=== PATIENT | female | born 1960 | race African-American/Black ===

== ENCOUNTER 2023-08-30 11:12 | Inpatient (IN) | payer MEDICAID, OTHER, SELFPAY ==
[~2023-08-30] VITALS: Ht 167.6 cm; Wt 65.4 kg
[2023-08-30] MEDS ORDERED: METF10004 (11:21)
[2023-08-30 12:44] LABS: BASO % 0.3 % (0.0-1.0); EOS % 0.3 % (0.0-3.0); HEMATOCRIT 40.8 % (36.0-47.0); LYMPH # 2.6 10^3/uL (1.5-5.0); LYMPH % 34.7 % (24.0-44.0); MEAN CORPUSCULAR HEMOGLOBIN 23.9 pg (27.0-33.0); MEAN CORPUSCULAR HGB CONC 31.9 g/dl (32.0-36.5); MEAN CORPUSCULAR VOLUME 75.1 fl (80.0-96.0); MONO # 0.3 10^3/uL (0.0-0.8); MONO % 3.5 % (2.0-8.0); NEUTROPHILS # 4.6 10^3/uL (1.5-8.5); NEUTROPHILS % 61.1 % (36.0-66.0); PLATELET COUNT, AUTOMATED 338 10^3/uL (150-450); RED BLOOD COUNT 5.43 10^6/uL (4.00-5.40); WHITE BLOOD COUNT 7.5 10^3/uL (4.0-10.0)
[2023-08-30 13:13] LABS: ALBUMIN 4.3 G/DL (3.2-5.2); ALKALINE PHOSPHATASE 103 U/L (46-116); ALT/SGPT 16 U/L (7.0-40); AST/SGOT 10 U/L (<34); BILIRUBIN,TOTAL 0.4 MG/DL (0.3-1.2); BLOOD UREA NITROGEN 50 MG/DL (9-23); CALCIUM LEVEL 10.4 MG/DL (8.3-10.6); CARBON DIOXIDE LEVEL 21 MMOL/L (20-31); CHLORIDE LEVEL 91 MMOL/L (98-107); CREATININE FOR GFR 1.86 MG/DL (0.55-1.30); GLOMERULAR FILTRATION RATE 29.2 (>45); GLUCOSE, FASTING 635 MG/DL (74-106); POTASSIUM SERUM 4.8 MMOL/L (3.5-5.1); SODIUM LEVEL 125 MMOL/L (136-145); TOTAL PROTEIN 8.5 G/DL (5.7-8.2)
[2023-08-30] MEDS ORDERED: NS 500 ML IV ONE ×2 (14:15→15:05)
[2023-08-30 14:18] LABS: VENOUS BASE EXCESS -7.4 (-2.0-2.0); VENOUS HCO3 19.3 MMOL/L (23.0-27.0); VENOUS O2 SATURATION 73.2 % (60.0-80.0); VENOUS PARTIAL PRESSURE CO2 43.8 mmHg (38.0-50.0); VENOUS PARTIAL PRESSURE O2 41.3 mmHg (30.0-50.0); VENOUS PH 7.263 UNITS (7.330-7.430); VENOUS TOTAL CO2 20.7 MMOL/L (24.0-28.0)
[2023-08-30] MEDS ORDERED: HumuLIN R (REGULAR) INSULIN (NovoLIN R) **100U/ML** PER UNIT IV ONE ×2 (14:20→16:10)
[2023-08-30 14:33] LABS: CK-MB VALUE MASS < 1.0 NG/ML (<3.6)
[2023-08-30 14:35] LABS: CPK CREATINE PHOSPHOKINASE 100 U/L (34-145)
[2023-08-30 14:42] LABS: ACETONE/KETONE 2.93 MMOL/L (0.02-0.27)
[2023-08-30 15:42] LABS: HEMOGLOBIN A1c > 14.0 % (4.0-6.0)
[2023-08-30] MEDS ORDERED: LR 1,000 ML IV ONE (16:10)
[2023-08-30] MEDS ORDERED: MED REC IN PROGRESS XX SCH (17:25)
[2023-08-30] MEDS ORDERED: MOM 30ML SUSPENSION UDC PO PRN (17:35)
[2023-08-30] MEDS ORDERED: DEXTROSE 50% 50ML SYRINGE IV PRN (17:35)
[2023-08-30] MEDS ORDERED: GLUCAGON INJ 1MG VIAL SC PRN (17:35)
[2023-08-30] MEDS ORDERED: GLUCOSE 4GM CHEW TABLET PO PRN (17:35)
[2023-08-30 18:28] LABS: IRON (FE) 46 UG/DL (50-170); MAGNESIUM LEVEL 2.6 MG/DL (1.8-2.4); PHOSPHORUS LEVEL 4.9 MG/DL (2.4-5.1)
[2023-08-30 18:29] LABS: PERCENT SATURATION 17.2 % (13.2-45.0); TOTAL IRON BINDING CAPACITY 267 UG/DL (250-425)
[2023-08-30 18:31] LABS: FOLATE 16.78 NG/ML (>5.4); VITAMIN B12 LEVEL 708 PG/ML (211-911)
[2023-08-30] MEDS: INSULIN LISPRO (NovoLOG) PER UNIT SC SCH ×2 (18:39→21:09)
[2023-08-30] MEDS ORDERED: HIV MEDICATION (18:48)
[2023-08-30 18:55] LABS: INR 1.24; PROTHROMBIN TIME 15.2 SECONDS (12.5-14.5)
[2023-08-30 18:56] LABS: FERRITIN 1447.7 NG/ML (7.3-270.7)
[2023-08-30] MEDS ORDERED: MED REC CURRENTLY UNOBTAINABLE XX SCH (20:30)
[2023-08-30] MEDS: DOCUSATE SODIUM 100MG CAPSULE PO SCH (21:00)
[2023-08-30] MEDS: HEPARIN SOD (PORCINE) 5000UNITS/ML 1ML VIAL/SYRINGE SC SCH (23:42)
[2023-08-31 00:46] LABS: ALBUMIN 3.6 G/DL (3.2-5.2); BLOOD UREA NITROGEN 32 MG/DL (9-23); CALCIUM LEVEL 9.5 MG/DL (8.3-10.6); CARBON DIOXIDE LEVEL 23 MMOL/L (20-31); CHLORIDE LEVEL 106 MMOL/L (98-107); CREATININE FOR GFR 1.48 MG/DL (0.55-1.30); GLOMERULAR FILTRATION RATE 46.1 (>45); GLUCOSE, FASTING 62 MG/DL (74-106); PHOSPHORUS LEVEL 3.3 MG/DL (2.4-5.1); POTASSIUM SERUM 3.6 MMOL/L (3.5-5.1); SODIUM LEVEL 139 MMOL/L (136-145)
[2023-08-31] MEDS: INSULIN LISPRO (NovoLOG) PER UNIT SC SCH ×5 (02:11→18:59)
[2023-08-31 05:56] LABS: VENOUS BASE EXCESS -4.8 (-2.0-2.0); VENOUS HCO3 21.6 MMOL/L (23.0-27.0); VENOUS O2 SATURATION 87.7 % (60.0-80.0); VENOUS PARTIAL PRESSURE CO2 45.5 mmHg (38.0-50.0); VENOUS PARTIAL PRESSURE O2 56.2 mmHg (30.0-50.0); VENOUS PH 7.295 UNITS (7.330-7.430); VENOUS STANDARD HCO3 20.3 MMOL/L
[2023-08-31 06:02] LABS: HEMATOCRIT 35.5 % (36.0-47.0); HEMOGLOBIN 11.2 g/dl (12.0-15.5); MEAN CORPUSCULAR HEMOGLOBIN 23.9 pg (27.0-33.0); MEAN CORPUSCULAR HGB CONC 31.5 g/dl (32.0-36.5); MEAN CORPUSCULAR VOLUME 75.7 fl (80.0-96.0); PLATELET COUNT, AUTOMATED 302 10^3/uL (150-450); RED BLOOD COUNT 4.69 10^6/uL (4.00-5.40); WHITE BLOOD COUNT 6.9 10^3/uL (4.0-10.0)
[2023-08-31 06:31] LABS: ALBUMIN 3.3 G/DL (3.2-5.2); CALCIUM LEVEL 9.5 MG/DL (8.3-10.6); CREATININE FOR GFR 1.5 MG/DL (0.55-1.30); GLOMERULAR FILTRATION RATE 45.4 (>45); MAGNESIUM LEVEL 2.1 MG/DL (1.8-2.4); PHOSPHORUS LEVEL 4.3 MG/DL (2.4-5.1); POTASSIUM SERUM 4.3 MMOL/L (3.5-5.1)
[2023-08-31] MEDS: DOCUSATE SODIUM 100MG CAPSULE PO SCH ×2 (08:15→21:03)
[2023-08-31] MEDS: HEPARIN SOD (PORCINE) 5000UNITS/ML 1ML VIAL/SYRINGE SC SCH ×3 (08:17→21:02)
[2023-08-31] MEDS: LR 1,000 ML IV SCH ×3 (08:30→21:04)
[2023-08-31] MEDS ORDERED: LEVEMIR (INSULIN DETEMIR) 1 UNITS/0.01ML SC SCH (09:00)
[2023-08-31] MEDS: ACETAMINOPHEN TAB 650MG DOSE (2X325MG) PO PRN ×2 (10:32→18:59)
[2023-08-31] MEDS ORDERED: LANC30MI XX (10:56)
[2023-08-31] MEDS ORDERED: METF-877 PO (10:56)
[2023-08-31] MEDS ORDERED: LANTINJ4 SC (10:56)
[2023-08-31] MEDS ORDERED: PEN-308 SC (10:56)
[2023-08-31] MEDS ORDERED: ALCOPAD25 TOP (10:56)
[2023-08-31] MEDS ORDERED: GLUC1TES2 XX (10:56)
[2023-08-31] MEDS ORDERED: BLOOKIT21 XX (10:56)
[2023-08-31 15:15] VITALS: BP 134/83; TEMP 97.5; O2SAT 100
[2023-08-31 19:01] LABS: CALCIUM LEVEL 8.7 MG/DL (8.3-10.6); CREATININE FOR GFR 1.35 MG/DL (0.55-1.30); GLOMERULAR FILTRATION RATE 51.3 (>45); PHOSPHORUS LEVEL 2.9 MG/DL (2.4-5.1); POTASSIUM SERUM 4.6 MMOL/L (3.5-5.1)
[2023-08-31] MEDS ORDERED: INSULIN LISPRO (NovoLOG) PER UNIT SC SCH (21:00)
[2023-08-31 21:56] VITALS: BP 136/78; TEMP 97.6; O2SAT 100
[2023-09-01] MEDS: HEPARIN SOD (PORCINE) 5000UNITS/ML 1ML VIAL/SYRINGE SC SCH ×2 (06:00→14:00)
[2023-09-01 06:10] LABS: HEMATOCRIT 32.5 % (36.0-47.0); HEMOGLOBIN 10.5 g/dl (12.0-15.5); MEAN CORPUSCULAR HEMOGLOBIN 24.3 pg (27.0-33.0); MEAN CORPUSCULAR HGB CONC 32.3 g/dl (32.0-36.5); MEAN CORPUSCULAR VOLUME 75.2 fl (80.0-96.0); PLATELET COUNT, AUTOMATED 276 10^3/uL (150-450); RED BLOOD COUNT 4.32 10^6/uL (4.00-5.40)
[2023-09-01 06:27] VITALS: BP 127/80; TEMP 97.5; O2SAT 96
[2023-09-01 06:40] LABS: ALBUMIN 2.9 G/DL (3.2-5.2); CALCIUM LEVEL 8.5 MG/DL (8.3-10.6); CREATININE FOR GFR 1.32 MG/DL (0.55-1.30); GLOMERULAR FILTRATION RATE 52.6 (>45); MAGNESIUM LEVEL 1.8 MG/DL (1.8-2.4); PHOSPHORUS LEVEL 3.8 MG/DL (2.4-5.1); POTASSIUM SERUM 4.3 MMOL/L (3.5-5.1)
[2023-09-01] MEDS: INSULIN LISPRO (NovoLOG) PER UNIT SC SCH ×2 (08:27→12:42)
[2023-09-01] MEDS: DOCUSATE SODIUM 100MG CAPSULE PO SCH (08:28)
[2023-09-01] MEDS ORDERED: LEVEMIR (INSULIN DETEMIR) 1 UNITS/0.01ML SC SCH (09:00)
[2023-09-01] MEDS ORDERED: [UNRECOGNIZED DRUG - CODE] PO (09:20)
[2023-09-01] MEDS ORDERED: TIVI1TAB PO (09:20)
[2023-09-01] MEDS ORDERED: LANTINJ4 SC ×3 (09:22→14:10)
[2023-09-01] MEDS ORDERED: DEXT4TAB83 PO ×2 (09:22→14:10)
[2023-09-01] MEDS ORDERED: FERR325T3 PO ×3 (11:30→14:10)
[2023-09-01 14:00] VITALS: BP 121/67; TEMP 98.1; O2SAT 99
[2023-09-01] MEDS ORDERED: GLUC1TES2 XX (14:10)
[2023-09-01] MEDS ORDERED: LANC30MI XX (14:10)
[2023-09-01] MEDS ORDERED: METF-877 PO (14:10)
[2023-09-01] MEDS ORDERED: ALCOPAD25 TOP (14:10)
[2023-09-01] MEDS ORDERED: BLOOKIT21 XX (14:10)
[2023-09-01] MEDS ORDERED: PEN-308 SC (14:10)
[2023-09-01 14:11] LABS: % CD8 Pos Lymph 40.2 % (12.0-35.5); %CD4 Pos Lymphs 40.3 % (30.8-58.5); ABS Lymphs 2.7 x10E3/uL (0.7-3.1); ABS Monocytes 0.3 x10E3/uL (0.1-0.9); ABS Neutophils 4.3 x10E3/uL (1.4-7.0); Abs CD4 Helper 1088 /uL (359-1519); Abs CD8 Suppres 1085 /uL (109-897); Eosinophils 0 % (Not Estab.); HCT 36.2 % (34.0-46.6); HGB 11.4 g/dL (11.1-15.9); Immature Grans 0 % (Not Estab.); Lymphocytes 37 % (Not Estab.); MCH 23.7 pg (26.6-33.0); MCHC 31.5 g/dL (31.5-35.7); MCV 75 fL (79-97); Monocytes 3 % (Not Estab.); Neutrophils 60 % (Not Estab.); Platelets 323 x10E3/uL (150-450); RBC 4.81 x10E6/uL (3.77-5.28); RDW 17.7 % (11.7-15.4); WBC 7.3 x10E3/uL (3.4-10.8)
[2023-09-02 12:15] LABS: HIV 1&2 SCREEN REACTIVE (NEGATIVE)
== END 2023-09-01 16:40 | disposition home or self-care (01) | DRG 420 ==
LOC: M ED 11:12 → M ED INP 17:35 → ENRESERV 08-31 13:32 → M MS5PR 08-31 15:15
PROVIDERS: ADMIT Student in an Organized Health Care Education/Training Program; ATTEND Student in an Organized Health Care Education/Training Program
DX: E11.00 Type 2 diabetes mellitus with hyperosmolarity without nonketotic hyperglycemic-hyperosmolar coma (NKHHC) (principal); N17.9 Acute kidney failure, unspecified; B20 Human immunodeficiency virus [HIV] disease; E87.20 Acidosis, unspecified; E11.649 Type 2 diabetes mellitus with hypoglycemia without coma; Z79.4 Long term (current) use of insulin; Z87.891 Personal history of nicotine dependence; E11.65 Type 2 diabetes mellitus with hyperglycemia; E87.1 Hypo-osmolality and hyponatremia; Z79.899 Other long term (current) drug therapy

== ENCOUNTER → 2023-10-19 | Outpatient (CLI) | payer OTHER ==
[~2023-10-19] MED LIST: ALCOPAD25 TOP; BLOOKIT21 XX; DEXT4TAB83 PO; FERR325T3 PO; GLUC1TES2 XX; HIV MEDICATION; LANC30MI XX; LANTINJ4 SC; METF-877 PO; METF10004; PEN-308 SC; TIVI1TAB PO; [UNRECOGNIZED DRUG - CODE] PO
[2023-10-19 16:06] LABS: HEPATITIS B SURFACE ANTIBODY NEGATIVE (POSITIVE)
[2023-10-19 16:40] LABS: HEPATITIS C VIRUS ABY INDEX 0.07 INDEX (<0.8)
[2023-10-19 17:39] LABS: CHLAMYDIA DNA AMPLIFICATION NEGATIVE (NEGATIVE); GC DNA AMPLIFICATION NEGATIVE (NEGATIVE)
[2023-10-21 05:15] LABS: HEPATITIS A IgG TOTAL Positive (Negative); HEPATITIS B CORE ANTIBODY IGG Negative (Negative)
== END ==
LOC: M PLALAB 12:31
PROVIDERS: ATTEND Internal Medicine Infectious Disease
DX: B20 Human immunodeficiency virus [HIV] disease (principal); Z11.3 Encounter for screening for infections with a predominantly sexual mode of transmission

== ENCOUNTER → 2023-12-26 | Outpatient (REF) | payer MEDICAID, OTHER, SELFPAY ==
[~2023-12-26] MED LIST changes: +ABAC1TAB9 PO
== END ==
LOC: M SFHCWAGY 07:52
PROVIDERS: ATTEND Nurse Practitioner Family
DX: Z12.4 Encounter for screening for malignant neoplasm of cervix (principal)
CPT/HCPCS: 87624; G0123

== ENCOUNTER → 2023-12-26 | Outpatient (CLI) | payer MEDICAID, OTHER, SELFPAY ==
[~2023-12-26] MED LIST changes: -ABAC1TAB9 PO
== END ==
LOC: M WHC 09:07 → MERGE 09:11 → EDUNIT# 10:00
PROVIDERS: ATTEND Nurse Practitioner Family
DX: Z12.31 Encounter for screening mammogram for malignant neoplasm of breast (principal); Z13.820 Encounter for screening for osteoporosis

== ENCOUNTER → 2024-01-10 | Outpatient (CLI) | payer MEDICAID, OTHER | LOC: MERGE 10:30 → M WHC 10:41 | PROVIDERS: ATTEND Nurse Practitioner Family | DX: Z12.31 Encounter for screening mammogram for malignant neoplasm of breast (principal) ==

== ENCOUNTER → 2024-02-03 | Day surgery (SDC) | payer MEDICAID, SELFPAY ==
[~2024-02-03] VITALS: Ht 167.6 cm; Wt 68.0 kg
[~2024-02-03] MED LIST changes: +ABAC1TAB9 PO; +LIDOCAINE 2% 100MG/5ML SDV (FOR ANES.) As Ordered ONE; +PHENYLephrine 500MCG 5ML (100MCG/ML) SYRINGE As Ordered ONE; +fentaNYL 100 MCG/2 ML INJECTION As Ordered ONE; +propofoL 200 MG/20 ML VIAL As Ordered ONE
[2024-02-03] MEDS: NS 1,000 ML IV ONE (14:20)
[2024-02-03 15:20] VITALS: TEMP 97.3
[2024-02-03 15:42] VITALS: BP 115/71; O2SAT 97
== END | disposition home or self-care (01) ==
LOC: M OPP 13:14
PROVIDERS: ATTEND Internal Medicine Gastroenterology
DX: D50.9 Iron deficiency anemia, unspecified (principal); K64.8 Other hemorrhoids; K64.4 Residual hemorrhoidal skin tags; K29.70 Gastritis, unspecified, without bleeding; K31.7 Polyp of stomach and duodenum; K31.89 Other diseases of stomach and duodenum; E11.9 Type 2 diabetes mellitus without complications; B20 Human immunodeficiency virus [HIV] disease; Z79.4 Long term (current) use of insulin; Z79.624 Long term (current) use of inhibitors of nucleotide synthesis
CPT/HCPCS: 43239; 45378; 88305; J2371; J3010

== ENCOUNTER → 2024-04-03 | Outpatient (CLI) | payer MEDICAID ==
[~2024-04-03] MED LIST changes: -LIDOCAINE 2% 100MG/5ML SDV (FOR ANES.) As Ordered ONE; -PHENYLephrine 500MCG 5ML (100MCG/ML) SYRINGE As Ordered ONE; -fentaNYL 100 MCG/2 ML INJECTION As Ordered ONE; -propofoL 200 MG/20 ML VIAL As Ordered ONE
[2024-04-03 14:37] LABS: ALBUMIN 3.9 G/DL (3.2-5.2); BILIRUBIN,TOTAL 0.5 MG/DL (0.3-1.2); CALCIUM LEVEL 9.3 MG/DL (8.3-10.6); CREATININE FOR GFR 1.87 MG/DL (0.55-1.30); GLOMERULAR FILTRATION RATE 28.9 (>45); PERCENT SATURATION 15.5 % (13.2-45.0); POTASSIUM SERUM 4.2 MMOL/L (3.5-5.1); TOTAL PROTEIN 7.3 G/DL (5.7-8.2)
[2024-04-04 13:08] LABS: % CD4+ LYMPHS 43.3 % (30.8-58.5); ABSOLUTE CD4 HELPER 1429 /uL (359-1519); BASOPHILS 0 % (Not Estab.); EOSINOPHILS 1 % (Not Estab.); EOSINOPHILS ABSOLUTE 0.1 x10E3/uL (0.0-0.4); HCT 34.8 % (34.0-46.6); HGB 10.7 g/dL (11.1-15.9); LYMPHOCYTES 43 % (Not Estab.); LYMPHOCYTES ABSOLUTE 3.3 x10E3/uL (0.7-3.1); MCH 23.8 pg (26.6-33.0); MCHC 30.7 g/dL (31.5-35.7); MCV 78 fL (79-97); MONOCYTES 7 % (Not Estab.); MONOCYTES ABSOLUTE 0.5 x10E3/uL (0.1-0.9); NEUTROPHILS 49 % (Not Estab.); NEUTROPHILS ABSOLUTE 3.7 x10E3/uL (1.4-7.0); PLT 314 x10E3/uL (150-450); RBC 4.49 x10E6/uL (3.77-5.28); RDW 17.9 % (11.7-15.4); WBC 7.6 x10E3/uL (3.4-10.8)
== END ==
LOC: M PLALAB 04-02 14:20
PROVIDERS: ATTEND Internal Medicine Infectious Disease
DX: B20 Human immunodeficiency virus [HIV] disease (principal)

== ENCOUNTER → 2024-08-06 | Outpatient (CLI) | payer MEDICAID, OTHER, SELFPAY ==
[~2024-08-06] MED LIST changes: +ABAC1TAB14 PO; -ABAC1TAB9 PO
[2024-08-06 18:58] LABS: HEMATOCRIT 36.6 % (36.0-47.0); HEMOGLOBIN 11.1 g/dl (12.0-15.5); MEAN CORPUSCULAR HEMOGLOBIN 24.1 pg (27.0-33.0); MEAN CORPUSCULAR HGB CONC 30.3 g/dl (32.0-36.5); MEAN CORPUSCULAR VOLUME 79.4 fl (80.0-96.0); PLATELET COUNT, AUTOMATED 359 10^3/uL (150-450); RED BLOOD COUNT 4.61 10^6/uL (4.00-5.40)
== END ==
LOC: M LRY 09:11
PROVIDERS: ATTEND Nurse Practitioner Family
DX: D50.9 Iron deficiency anemia, unspecified (principal)

== ENCOUNTER → 2024-10-15 | Outpatient (CLI) | payer OTHER ==
[~2024-10-15] MED LIST changes: +FAMO-142 PO; +IRON65TA2 PO; +incomplete list
[2024-10-15 13:39] LABS: HEMOGLOBIN A1c 6.8 % (4.0-6.0)
[2024-10-15 13:44] LABS: ALBUMIN 3.7 G/DL (3.2-5.2); BILIRUBIN,TOTAL 0.4 MG/DL (0.3-1.2); CALCIUM LEVEL 9.4 MG/DL (8.3-10.6); CHOLESTEROL RISK RATIO 5.73 (<5); CREATININE FOR GFR 1.65 MG/DL (0.55-1.30); GLOMERULAR FILTRATION RATE 33.3 (>45); HDL CHOLESTEROL 38.9 MG/DL (>40); LDL CHOLESTEROL 139.3 MG/DL (<100); NON-HDL-C 184.1 MG/DL; POTASSIUM SERUM 4.7 MMOL/L (3.5-5.1); TOTAL PROTEIN 7.8 G/DL (5.7-8.2)
[2024-10-16 15:08] LABS: % CD4+ LYMPHS 34.9 % (30.8-58.5); ABSOLUTE CD4 HELPER 907 /uL (359-1519); BASOPHILS 0 % (Not Estab.); EOSINOPHILS 1 % (Not Estab.); EOSINOPHILS ABSOLUTE 0.1 x10E3/uL (0.0-0.4); HCT 33.6 % (34.0-46.6); HGB 10.9 g/dL (11.1-15.9); LYMPHOCYTES 46 % (Not Estab.); LYMPHOCYTES ABSOLUTE 2.6 x10E3/uL (0.7-3.1); MCH 24.8 pg (26.6-33.0); MCHC 32.4 g/dL (31.5-35.7); MCV 77 fL (79-97); MONOCYTES 6 % (Not Estab.); MONOCYTES ABSOLUTE 0.4 x10E3/uL (0.1-0.9); NEUTROPHILS 47 % (Not Estab.); NEUTROPHILS ABSOLUTE 2.6 x10E3/uL (1.4-7.0); PLT 334 x10E3/uL (150-450); RBC 4.39 x10E6/uL (3.77-5.28); RDW 17.1 % (11.7-15.4); WBC 5.6 x10E3/uL (3.4-10.8)
[2024-10-19 18:23] LABS: HIV-1 RNA PCR QUANT 3 2.49 (NOT DETECTED)
== END ==
LOC: M PLALAB 11:20
PROVIDERS: ATTEND Internal Medicine Infectious Disease
DX: B20 Human immunodeficiency virus [HIV] disease (principal)

== ENCOUNTER 2024-11-08 08:50 | Day surgery (SDC) | payer OTHER ==
[~2024-11-08] VITALS: Ht 167.6 cm; Wt 69.2 kg
[~2024-11-08 08:50] MED LIST changes: +MIDAZOLAM INJ 2MG/2ML VIAL As Ordered ONE; +PHENYLEPHRINE 10% OPHTH SOL 5ML OD PRN; +fentaNYL 100 MCG/2 ML INJECTION As Ordered ONE
[2024-11-08] MEDS: OFLOXACIN 0.3 % (OCUFLOX) OPTH SOL 5ML OD ONE (10:05)
[2024-11-08] MEDS: LIDOCAINE 3.5 % 1ML OPHTH TOPICAL GEL OU ONE (10:05)
[2024-11-08] MEDS: PHENYLEPHRINE 2.5% OPHTH SOL 2ML OD SCH (11:28)
[2024-11-08] MEDS: TROPICAMIDE 1% OPHTH SOLN 15ML OD SCH (11:28)
[2024-11-08] MEDS: CYCLOPENTOLATE 1% OPHTH SOLN 2ML BTL OD SCH (11:28)
[2024-11-08] MEDS: LIDOCAINE 1% SDV 5ML VIAL As Ordered ONE (12:15)
[2024-11-08] MEDS: CEFUROXIME 1MG/0.1ML INTRACAMERAL INJ As Ordered ONE (12:20)
[2024-11-08] MEDS: BSS IRRIG/VANCO(10MG)/TOBRA(5MG)/EPINEPH(1:1000-0.5CC)500ML BAG-ORONLY As Ordered ONE (12:20)
[2024-11-08 12:32] VITALS: BP 125/76; TEMP 96.8; O2SAT 98
== END 2024-11-08 13:39 | disposition home or self-care (01) ==
LOC: M SDC 08:50
PROVIDERS: ATTEND Ophthalmology
DX: E11.36 Type 2 diabetes mellitus with diabetic cataract (principal); H25.11 Age-related nuclear cataract, right eye; D50.9 Iron deficiency anemia, unspecified; Z21 Asymptomatic human immunodeficiency virus [HIV] infection status; Z79.899 Other long term (current) drug therapy; Z79.84 Long term (current) use of oral hypoglycemic drugs; K21.9 Gastro-esophageal reflux disease without esophagitis
CPT/HCPCS: 66984; J0697; J2250; J3010; V2632

== ENCOUNTER → 2025-04-30 | Outpatient (CLI) | payer OTHER ==
[~2025-04-30] MED LIST changes: -MIDAZOLAM INJ 2MG/2ML VIAL As Ordered ONE; -PHENYLEPHRINE 10% OPHTH SOL 5ML OD PRN; -fentaNYL 100 MCG/2 ML INJECTION As Ordered ONE
== END ==
LOC: M WHC 09:58
PROVIDERS: ATTEND Family Medicine
DX: Z12.31 Encounter for screening mammogram for malignant neoplasm of breast (principal); R92.8 Other abnormal and inconclusive findings on diagnostic imaging of breast

== ENCOUNTER → 2025-05-06 | Outpatient (CLI) | payer OTHER | LOC: M CARPUL 11:39 | PROVIDERS: ATTEND Internal Medicine Cardiovascular Disease | DX: R00.1 Bradycardia, unspecified (principal); R94.31 Abnormal electrocardiogram [ECG] [EKG]; I49.40 Unspecified premature depolarization ==

== ENCOUNTER 2025-07-13 13:19 | Observation (INO) | payer OTHER ==
[~2025-07-13] VITALS: Ht 165.1 cm; Wt 66.9 kg
[2025-07-13] MEDS ORDERED: JARD1TAB3 PO (13:37)
[2025-07-13 14:19] LABS: VENOUS BASE EXCESS -3.6 (-2.0-2.0); VENOUS HCO3 23.0 MMOL/L (23.0-27.0); VENOUS O2 SATURATION 50.9 % (60.0-80.0); VENOUS PARTIAL PRESSURE CO2 47.8 mmHg (38.0-50.0); VENOUS PARTIAL PRESSURE O2 28.9 mmHg (30.0-50.0); VENOUS PH 7.301 UNITS (7.330-7.430); VENOUS STANDARD HCO3 20.5 MMOL/L; VENOUS TOTAL CO2 24.5 MMOL/L (24.0-28.0)
[2025-07-13 14:23] LABS: BASO # 0.0 10^3/uL (0.0-0.2); BASO % 0.2 % (0.0-1.0); EOS # 0.0 10^3/uL (0.0-0.5); EOS % 0.6 % (0.0-3.0); LYMPH # 2.5 10^3/uL (1.5-5.0); LYMPH % 37.1 % (24.0-44.0); MONO # 0.3 10^3/uL (0.0-0.8); MONO % 4.4 % (2.0-8.0); NEUTROPHILS # 3.8 10^3/uL (1.5-8.5); NEUTROPHILS % 57.5 % (36.0-66.0); PLATELET COUNT, AUTOMATED 295 10^3/uL (150-450)
[2025-07-13 14:37] LABS: ESTIMATED AVERAGE GLUCOSE 341.0 MG/DL (60-110)
[2025-07-13 14:49] LABS: ACETONE/KETONE 0.41 MMOL/L (0.02-0.27)
[2025-07-13 14:51] LABS: OSMOLALITY SERUM 324.0 MOSM/KG (280-301)
[2025-07-13 14:52] LABS: ALT/SGPT 18.0 U/L (7.0-40); AST/SGOT 14.0 U/L (<34); CALCIUM LEVEL 10.0 MG/DL (8.3-10.6); CARBON DIOXIDE LEVEL 22.0 MMOL/L (20-31); CHLORIDE LEVEL 98.0 MMOL/L (98-107); CREATININE FOR GFR 2.09 MG/DL (0.55-1.30); GLOMERULAR FILTRATION RATE 26.0 (>45); MAGNESIUM LEVEL 2.2 MG/DL (1.8-2.4); POTASSIUM SERUM 5.1 MMOL/L (3.5-5.1); SODIUM LEVEL 133.0 MMOL/L (136-145)
[2025-07-13] MEDS: NS (Normal Saline) 0.9% 1,000 ML IV ONE (15:18)
[2025-07-13 17:03] LABS: VENOUS BASE EXCESS -4.2 (-2.0-2.0); VENOUS HCO3 22.5 MMOL/L (23.0-27.0); VENOUS O2 SATURATION 65.2 % (60.0-80.0); VENOUS PARTIAL PRESSURE CO2 47.4 mmHg (38.0-50.0); VENOUS PARTIAL PRESSURE O2 36.2 mmHg (30.0-50.0); VENOUS PH 7.294 UNITS (7.330-7.430); VENOUS STANDARD HCO3 20.4 MMOL/L; VENOUS TOTAL CO2 23.9 MMOL/L (24.0-28.0)
[2025-07-13 17:15] LABS: APPEARANCE, URINE CLEAR (CLEAR); BACTERIA, URINE AUTO NEGATIVE (NEGATIVE); BILIRUBIN, URINE AUTO NEGATIVE (NEGATIVE); BLOOD, URINE BLOOD 2+ (NEGATIVE); GLUCOSE, URINE (UA) AUTO 3+ mg/dL (NEGATIVE); KETONE, URINE AUTO NEGATIVE (NEGATIVE); LEUKOCYTE ESTERASE, URINE AUTO NEGATIVE (NEGATIVE); MUCUS, URINE SMALL (NEGATIVE); NITRITE, URINE AUTO NEGATIVE (NEGATIVE); PROTEIN, URINE AUTO NEGATIVE (NEGATIVE); RBC, URINE AUTO 2 /HPF (0-3); SPECIFIC GRAVITY URINE AUTO 1.014 (1.002-1.035); SQUAMOUS EPITHELIAL CELL UR AU 0 /HPF (0-6); UROBILINOGEN, URINE AUTO 0.2 mg/dL (0.0-2.0); WBC, URINE AUTO 0 /HPF (0-3)
[2025-07-13 17:44] LABS: OSMOLALITY SERUM 325.0 MOSM/KG (280-301)
[2025-07-13 17:45] LABS: CALCIUM LEVEL 9.3 MG/DL (8.3-10.6); CARBON DIOXIDE LEVEL 24.0 MMOL/L (20-31); CHLORIDE LEVEL 104.0 MMOL/L (98-107); CREATININE FOR GFR 1.98 MG/DL (0.55-1.30); GLOMERULAR FILTRATION RATE 27.7 (>45); POTASSIUM SERUM 4.8 MMOL/L (3.5-5.1); SODIUM LEVEL 139.0 MMOL/L (136-145)
[2025-07-13 17:46] LABS: ACETONE/KETONE 0.39 MMOL/L (0.02-0.27)
[2025-07-13] MEDS: NS 500 ML IV ONE (18:51)
[2025-07-13] MEDS: NS (Normal Saline) 0.9% 1,000 ML IV SCH (18:51)
[2025-07-13] MEDS: INSULIN LISPRO (NovoLOG) PER UNIT SC SCH (21:00)
[2025-07-13] MEDS ORDERED: ACETAMINOPHEN 325 MG TAB PO PRN (21:40)
[2025-07-13] MEDS ORDERED: GLUCAGON INJ 1 MG VIAL SC PRN (21:40)
[2025-07-13] MEDS ORDERED: GLUCOSE 4 GM CHEW PO PRN (21:40)
[2025-07-13] MEDS ORDERED: DEXTROSE 50% 50 ML SYRINGE IV PRN (21:40)
[2025-07-13] MEDS ORDERED: OMEP-173 PO (22:15)
[2025-07-13] MEDS ORDERED: METF500T13 PO (22:15)
[2025-07-13] MEDS ORDERED: ATOR40TA75 PO (22:15)
[2025-07-13] MEDS ORDERED: BIKT1TAB PO (22:16)
[2025-07-13] MEDS ORDERED: ACET-683 PO (22:17)
[2025-07-13] MEDS ORDERED: HOME MED LIST COMPLETE! XX SCH (22:20)
[2025-07-13] MEDS: SODIUM BICARBONATE 75 MEQ in NS 0.45% 1,000 ML IV SCH (23:32)
[2025-07-13 23:46] LABS: VENOUS BASE EXCESS -3.6 (-2.0-2.0); VENOUS HCO3 21.8 MMOL/L (23.0-27.0); VENOUS O2 SATURATION 70.9 % (60.0-80.0); VENOUS PARTIAL PRESSURE CO2 41.0 mmHg (38.0-50.0); VENOUS PARTIAL PRESSURE O2 38.2 mmHg (30.0-50.0); VENOUS PH 7.344 UNITS (7.330-7.430); VENOUS STANDARD HCO3 20.9 MMOL/L; VENOUS TOTAL CO2 23.1 MMOL/L (24.0-28.0)
[2025-07-14 00:10] LABS: INR 0.99
[2025-07-14 00:24] LABS: CALCIUM LEVEL 9.0 MG/DL (8.3-10.6); CARBON DIOXIDE LEVEL 23.0 MMOL/L (20-31); CHLORIDE LEVEL 106.0 MMOL/L (98-107); CREATININE FOR GFR 1.88 MG/DL (0.55-1.30); GLOMERULAR FILTRATION RATE 29.5 (>45); MAGNESIUM LEVEL 2.1 MG/DL (1.8-2.4); POTASSIUM SERUM 4.8 MMOL/L (3.5-5.1); SODIUM LEVEL 139.0 MMOL/L (136-145)
[2025-07-14 03:20] VITALS: BP 148/68; TEMP 97; O2SAT 99
[2025-07-14 04:15] LABS: VENOUS BASE EXCESS -2.2 (-2.0-2.0); VENOUS HCO3 24.4 MMOL/L (23.0-27.0); VENOUS O2 SATURATION 62.3 % (60.0-80.0); VENOUS PARTIAL PRESSURE CO2 49.3 mmHg (38.0-50.0); VENOUS PARTIAL PRESSURE O2 34.6 mmHg (30.0-50.0); VENOUS PH 7.312 UNITS (7.330-7.430); VENOUS STANDARD HCO3 21.9 MMOL/L; VENOUS TOTAL CO2 25.9 MMOL/L (24.0-28.0)
[2025-07-14 04:52] LABS: CALCIUM LEVEL 8.6 MG/DL (8.3-10.6); CARBON DIOXIDE LEVEL 25.0 MMOL/L (20-31); CHLORIDE LEVEL 104.0 MMOL/L (98-107); CREATININE FOR GFR 1.86 MG/DL (0.55-1.30); GLOMERULAR FILTRATION RATE 29.9 (>45); POTASSIUM SERUM 4.2 MMOL/L (3.5-5.1); SODIUM LEVEL 140.0 MMOL/L (136-145)
[2025-07-14] MEDS: HEPARIN SOD 5000 UNITS/ML 1 ML VIAL/SYRINGE SQ SCH (06:26)
[2025-07-14] MEDS: DOCUSATE SODIUM 100 MG CAPSULE PO SCH (08:50)
[2025-07-14] MEDS: NS (Normal Saline) 0.9% 1,000 ML IV SCH (08:50)
[2025-07-14] MEDS: LanTUS (INSULIN GLARGINE INJ) 1 UNITS/0.01 ML SC SCH (08:51)
[2025-07-14] MEDS: INSULIN LISPRO (NovoLOG) PER UNIT SC SCH (08:51)
[2025-07-14 09:33] LABS: BASO # 0.0 10^3/uL (0.0-0.2); BASO % 0.2 % (0.0-1.0); EOS # 0.0 10^3/uL (0.0-0.5); EOS % 0.8 % (0.0-3.0); LYMPH # 2.7 10^3/uL (1.5-5.0); LYMPH % 55.4 % (24.0-44.0); MONO # 0.2 10^3/uL (0.0-0.8); MONO % 4.2 % (2.0-8.0); NEUTROPHILS # 1.9 10^3/uL (1.5-8.5); NEUTROPHILS % 39.2 % (36.0-66.0); PLATELET COUNT, AUTOMATED 295 10^3/uL (150-450)
[2025-07-14 10:01] LABS: MAGNESIUM LEVEL 2.0 MG/DL (1.8-2.4)
[2025-07-14 10:03] LABS: ACETONE/KETONE 1.21 MMOL/L (0.02-0.27)
[2025-07-14 11:40] LABS: IRON (FE) 53.0 UG/DL (50-170); PERCENT SATURATION 21.4 % (13.2-45.0)
[2025-07-14 11:43] LABS: VITAMIN B12 LEVEL 644.0 PG/ML (211-911)
[2025-07-14 12:00] VITALS: TEMP 97.4; O2SAT 98
[2025-07-14] MEDS: OMEPRAZOLE 20MG CAP PO SCH (12:00)
[2025-07-14] MEDS: ATORVASTATIN 20 MG TAB PO SCH (12:00)
[2025-07-14] MEDS ORDERED: LANTINJ4 SC (15:35)
[2025-07-14] MEDS ORDERED: PEN-308 SC (15:35)
[2025-07-14] MEDS ORDERED: JANU25TA PO (15:35)
[2025-07-14] MEDS ORDERED: GLUC1TES2 XX (17:10)
[2025-07-14] MEDS ORDERED: BLOOKIT21 XX (17:10)
[2025-07-14] MEDS ORDERED: LANC30MI XX (17:10)
[2025-07-15] MEDS ORDERED: EMTRICITABINE PO SCH (09:00)
[2025-07-15] MEDS ORDERED: TENOFOVIR PO SCH (09:00)
[2025-07-15] MEDS ORDERED: BIKTARVY PO SCH (09:00)
== END 2025-07-14 17:04 | disposition home or self-care (01) ==
LOC: M ED 13:19 → M ED INP 13:20 → M MS4PR 07-14 03:20
PROVIDERS: ADMIT Student in an Organized Health Care Education/Training Program; ATTEND Student in an Organized Health Care Education/Training Program
DX: E11.00 Type 2 diabetes mellitus with hyperosmolarity without nonketotic hyperglycemic-hyperosmolar coma (NKHHC) (principal); E11.65 Type 2 diabetes mellitus with hyperglycemia; J06.9 Acute upper respiratory infection, unspecified; B97.10 Unspecified enterovirus as the cause of diseases classified elsewhere; B97.89 Other viral agents as the cause of diseases classified elsewhere; N18.32 Chronic kidney disease, stage 3b; K21.9 Gastro-esophageal reflux disease without esophagitis; E78.5 Hyperlipidemia, unspecified; D50.9 Iron deficiency anemia, unspecified; B20 Human immunodeficiency virus [HIV] disease; E86.0 Dehydration; I95.1 Orthostatic hypotension; Z87.448 Personal history of other diseases of urinary system; R42 Dizziness and giddiness; H53.149 Visual discomfort, unspecified; Z87.891 Personal history of nicotine dependence; R00.0 Tachycardia, unspecified; I45.10 Unspecified right bundle-branch block; I44.4 Left anterior fascicular block; R94.31 Abnormal electrocardiogram [ECG] [EKG]; E87.8 Other disorders of electrolyte and fluid balance, not elsewhere classified; Z79.899 Other long term (current) drug therapy; Z79.4 Long term (current) use of insulin
CPT/HCPCS: 36415; 80048; 80076; 81001; 82010; 82607; 82728; 82746; 82803; 83036; 83550; 83605; 83690; 83735; 83930; 84466; 85025; 85610; 87486; 87581; 87633; 87798; 93005; 93041; 94760; 96360; 96361; 96372; 99285; J1815

== ENCOUNTER → 2025-10-03 | Outpatient (CLI) | payer OTHER ==
[~2025-10-03] MED LIST changes: +ACET-683 PO; +ATOR40TA75 PO; +BIKT1TAB PO; +JANU25TA PO; +JARD1TAB3 PO; +METF500T13 PO; +OMEP-173 PO
[2025-10-03 10:53] LABS: BASO # 0.0 10^3/uL (0.0-0.2); BASO % 0.2 % (0.0-1.0); EOS # 0.1 10^3/uL (0.0-0.5); EOS % 2.4 % (0.0-3.0); LYMPH # 2.7 10^3/uL (1.5-5.0); LYMPH % 50.3 % (24.0-44.0); MONO # 0.3 10^3/uL (0.0-0.8); MONO % 6.3 % (2.0-8.0); NEUTROPHILS # 2.2 10^3/uL (1.5-8.5); NEUTROPHILS % 40.6 % (36.0-66.0); PLATELET COUNT, AUTOMATED 375 10^3/uL (150-450)
[2025-10-03 11:19] LABS: ESTIMATED AVERAGE GLUCOSE 243.0 MG/DL (60-110)
[2025-10-03 11:21] LABS: ALT/SGPT 16.0 U/L (7.0-40); AST/SGOT 18.0 U/L (<34); CALCIUM LEVEL 9.3 MG/DL (8.3-10.6); CARBON DIOXIDE LEVEL 29.0 MMOL/L (20-31); CHLORIDE LEVEL 107.0 MMOL/L (98-107); CREATININE FOR GFR 2.0 MG/DL (0.55-1.30); GLOMERULAR FILTRATION RATE 27.2 (>45); POTASSIUM SERUM 4.8 MMOL/L (3.5-5.1); SODIUM LEVEL 144.0 MMOL/L (136-145)
[2025-10-06 16:43] LABS: % CD4 37 % (30-61); %CD8 46 % (12-42); ABSOLUTE CD4 CELLS 995 cells/uL (490-1740); ABSOLUTE CD8 CELLS 1229 cells/uL (180-1170); ABSOLUTE LYMPHOCYTES 2696 cells/uL (850-3900); CD4 CD8 RATIO 0.81 (0.86-5.00)
[2025-10-07 13:27] LABS: HIV-1 RNA PCR QUANT 2 51 copies/mL (NOT DETECTED); HIV-1 RNA PCR QUANT 3 1.71 (NOT DETECTED)
== END ==
LOC: M PLALAB 08:36
PROVIDERS: ATTEND Internal Medicine Infectious Disease
DX: E11.65 Type 2 diabetes mellitus with hyperglycemia (principal); E61.1 Iron deficiency; B20 Human immunodeficiency virus [HIV] disease